=== PATIENT | male | born 1930 | race Caucasian/White ===

== ENCOUNTER 2019-02-12 10:02 | Observation (INO) | payer OTHER ==
[2019-02-12 10:19] LABS: PLATELET COUNT 262 10^3/uL (150-400)
[2019-02-12] MEDS ORDERED: ASPIRIN 81 MG CHEWABLE TAB PO ONE (10:30)
[2019-02-12] MEDS ORDERED: NS 1,000 ML IV ONE (10:30)
--- NOTE | 2019-02-12 10:30 | EDPHY ---
H & P Time Seen by Provider: 02/12/19 10:03 HPI/ROS: Chief complaint. Stroke activation HPI. 88-year-old male presents to the emergency department with a stroke activation. Had he got up early this morning he was around the house. Hit he had some right knee pain and felt generally weak and slumped to the carpet. No injury. There was some concern about left-sided weakness and left facial droop. The patient tells me he did not have any weakness to the left side or right side. He does not have a headache. He has no visual symptoms. He has no chest pain or shortness of breath. No abdominal pain. He feels normal. No prior CVA ROS 10 systems were reviewed and negative with the exception of the elements mentioned in the history of present illness Past Medical/Surgical History: Coronary artery disease with stents, prostate cancer, hypothyroid Social History: , nonsmoker, no alcohol. Lives at home with Physical Exam: General Appearance: Alert well-developed male mild distress vital signs are stable Eyes: Pupils equal and round no pallor or injection. ENT, Mouth: Mucous membranes are moist. Respiratory: There are no retractions, lungs are clear to auscultation. Cardiovascular: Regular rate and rhythm. Gastrointestinal: Abdomen is soft and nontender, no masses, bowel sounds normal. Neurological: Awake and alert, sensory and motor exams grossly normal. Speech is normal. Some slight left mouth droop. Sensation is normal to face arms and legs. Ohtzdj-[id number] is normal bilaterally. No pronator drift. Rrsg-da-[id number] is intact bilaterally Skin: Warm and dry, no rashes. Musculoskeletal: Neck is supple nontender. Extremities symmetrical, full range of motion. Psychiatric: Patient is oriented X 3, there is no agitation. Constitutional: Initial Vital Signs Temperature (C) 36.9 C 02/12/19 10:14 Heart Rate 74 02/12/19 10:14 Respiratory Rate 18 02/12/19 10:14 Blood Pressure 172/95 H 02/12/19 10:14 O2 Sat (%) 97 02/12/19 10:14 O2 Delivery Mode Room Air Allergies/Adverse Reactions: fentanyl Allergy (Verified 02/12/19 10:23) Home Medications: Medication Instructions Recorded ARMOUR THYROID 02/12/19 Protonix 02/12/19 ZOLPIDEM TARTRATE 02/12/19 Medical Decision Making - Diagnostics EKG Interpretation: EKG interpreted by me shows normal sinus rhythm normal interval. Left axis deviation. QRS is normal there is no significant ST elevation or depression. No arrhythmia. The rate is 62 Imaging Results: Imaging Impressions Chest X-Ray 02/12/19 10:05 Impression: Clear lungs. Negative portable chest. Head CT 02/12/19 10:05 Impression: 1. Negative. No acute intracranial hemorrhage or evidence of acute cortical ischemia. 2. Moderate cerebral and cerebellar atrophy. Findings discussed with emergency department physician, Antione Tucker MD on February 12, 2019 at 10:[address] reviewed by me and discussed with Dr. Hankins is normal. No evidence for bleeding Perfusion studies of head and neck showed no occlusion. Procedures: IV normal saline, monitor ED Course/Re-evaluation: I consulted with [facility] Dr. Jason Mckeon who examines the patient by robot. He gives the patient a 1 on the stroke scale and recommends no tPA at this time. He recommends perfusion studies and giving the patient an aspirin. Re-evaluation Doss 30 a.m.. Patient is stable. Patient and I discussed imaging and lab results. We discussed treatment plan including recommendation for admission. He expresses understanding and agreement I consulted and discussed the case with , hospitalist, who agrees to the admission Differential Diagnosis: Generalized weakness and fall verses CVA, TIA. Patient's only neurologic finding is some left facial droop. No evidence for intracranial hemorrhage or large vessel occlusion - Data Points Laboratory Results: Laboratory Results 02/12/19 10:05 02/12/19 10:05 02/12/19 02/12/19 02/12/19 11:31 10:50 10:09 WBC RBC Hgb POC Hgb Hct POC Hct MCV MCH MCHC RDW Plt Count MPV Neut % (Auto) Lymph % (Auto) Rogers % (Auto) Eos % (Auto) Baso % (Auto) Nucleat RBC Rel Count Absolute Neuts (auto) Absolute Lymphs (auto) Absolute Monos (auto) Absolute Eos (auto) Absolute Basos (auto) Absolute Nucleated RBC Immature Gran % Immature Gran # PT Pending REJ INR Pending REJ APTT Pending REJ POC Sodium Sodium POC Potassium Potassium POC Chloride Chloride Carbon Dioxide POC Total CO2 Anion Gap POC BUN BUN Creatinine POC Creatinine Estimated GFR Glucose POC Glucose Calcium POC Troponin I 0.01 ng/mL ng/mL (0.00-0.08) Specimen Hemolysis 02/12/19 02/12/19 02/12/19 10:07 10:05 10:05 WBC RBC Hgb POC Hgb 15.0 gm/dL gm/dL (13.7-17.5) Hct POC Hct 44 % % (40-51) MCV MCH MCHC RDW Plt Count MPV Neut % (Auto) Lymph % (Auto) Rogers % (Auto) Eos % (Auto) Baso % (Auto) Nucleat RBC Rel Count Absolute Neuts (auto) Absolute Lymphs (auto) Absolute Monos (auto) Absolute Eos (auto) Absolute Basos (auto) Absolute Nucleated RBC Immature Gran % Immature Gran # PT REJ INR REJ APTT REJ POC Sodium 142 mEq/L mEq/L (135-145) Sodium 139 mEq/L mEq/L (135-145) POC Potassium 3.9 mEq/L mEq/L (3.3-5.0) Potassium 4.4 mEq/L mEq/L (3.5-5.2) POC Chloride 106 mEq/L mEq/L (97-110) Chloride 107 mEq/L mEq/L (97-110) Carbon Dioxide 20 mEq/l L mEq/l (22-31) POC Total CO2 23 mEq/L mEq/L (22-31) Anion Gap 12 mEq/L mEq/L (6-14) POC BUN 15 mg/dL mg/dL (7-23) BUN 16 mg/dL mg/dL (7-23) Creatinine 1.0 mg/dL mg/dL (0.7-1.3) POC Creatinine 1.1 mg/dL mg/dL (0.7-1.3) Estimated GFR > 60 Glucose 92 mg/dL mg/dL (70-100) POC Glucose 92 mg/dL mg/dL (70-100) Calcium 9.4 mg/dL mg/dL (8.5-10.4) POC Troponin I Specimen Hemolysis 229 02/12/19 10:05 WBC 6.40 10^3/uL 10^3/uL (3.80-9.50) RBC 4.89 10^6/uL 10^6/uL (4.40-6.38) Hgb 14.8 g/dL g/dL (13.7-17.5) POC Hgb Hct 44.8 % % (40.0-51.0) POC Hct MCV 91.6 fL fL (81.5-99.8) MCH 30.3 pg pg (27.9-34.1) MCHC 33.0 g/dL g/dL (32.4-36.7) RDW 13.7 % % (11.5-15.2) Plt Count 262 10^3/uL 10^3/uL (150-400) MPV 10.3 fL fL (8.7-11.7) Neut % (Auto) 55.5 % % (39.3-74.2) Lymph % (Auto) 23.4 % % (15.0-45.0) Rogers % (Auto) 13.3 % H % (4.5-13.0) Eos % (Auto) 6.7 % % (0.6-7.6) Baso % (Auto) 0.6 % % (0.3-1.7) Nucleat RBC Rel Count 0.0 % % (0.0-0.2) Absolute Neuts (auto) 3.55 10^3/uL 10^3/uL (1.70-6.50) Absolute Lymphs (auto) 1.50 10^3/uL 10^3/uL (1.00-3.00) Absolute Monos (auto) 0.85 10^3/uL H 10^3/uL (0.30-0.80) Absolute Eos (auto) 0.43 10^3/uL H 10^3/uL (0.03-0.40) Absolute Basos (auto) 0.04 10^3/uL 10^3/uL (0.02-0.10) Absolute Nucleated RBC 0.00 10^3/uL 10^3/uL (0-0.01) Immature Gran % 0.5 % % (0.0-1.1) Immature Gran # 0.03 10^3/uL 10^3/uL (0.00-0.10) PT INR APTT POC Sodium Sodium POC Potassium Potassium POC Chloride Chloride Carbon Dioxide POC Total CO2 Anion Gap POC BUN BUN Creatinine POC Creatinine Estimated GFR Glucose POC Glucose Calcium POC Troponin I Specimen Hemolysis Point of Care Test Results: Chemistry 02/12/19 02/12/19 10:09 10:07 POC Sodium 142 mEq/L mEq/L (135-145) POC Potassium 3.9 mEq/L mEq/L (3.3-5.0) POC Chloride 106 mEq/L mEq/L (97-110) POC Total CO2 23 mEq/L mEq/L (22-31) POC BUN 15 mg/dL mg/dL (7-23) POC Creatinine 1.1 mg/dL mg/dL (0.7-1.3) POC Glucose 92 mg/dL mg/dL (70-100) POC Troponin I 0.01 ng/mL ng/mL (0.00-0.08) ISTAT H&H 02/12/19 10:07 POC Hgb 15.0 gm/dL gm/dL (13.7-17.5) POC Hct 44 % % (40-51) Departure - Departure Disposition: [facility] Inpatient Acute Clinical Impression: Transient cerebral ischemia Qualifiers: Transient cerebral ischemia type: unspecified Qualified Code(s): G45.9 - Transient cerebral ischemic attack, unspecified Condition: Fair Referrals: Patient,NotPresent [Primary Care Provider] - As per Instructions
[2019-02-12] MEDS ORDERED: IOPAMIDOL (ISOVUE 370) 100 ML BTL IV ONE (10:46)
--- NOTE | 2019-02-12 11:34 | CPEKG ---
Test Reason : OPEN Blood Pressure : / mmHG Vent. Rate : 062 BPM Atrial Rate : 062 BPM P-R Int : 161 ms QRS Dur : 105 ms QT Int : 419 ms P-R-T Axes : 049 015 059 degrees QTc Int : 426 ms Sinus rhythm Low voltage, precordial leads Consider inferior infarct Probable anteroseptal infarct, old Confirmed by Antione Tucker ([id number]) on 02/12/2019 11:33:45 AM Referred By: Antione Tucker Confirmed By:Antione Tucker
[2019-02-12 11:53] LABS: INR 1.04 (0.83-1.16); PROTIME(PATIENT) 13.2 SEC (12.0-15.0)
--- NOTE | 2019-02-12 13:25 | ASMTCMCOM ---
CM Note CM Note Notes: Reviewed chart. Pt presented to the Emergency Department via EMS as a stroke alert, r/o CVA secondary to left sided facial droop and weakness. History includes coronary artery disease with prior stenting, prostate cancer, and hypothyroid. Pt is and lives with his . CM to beside at time of arrival; pt unaccompanied by family. Offered to contact pt's or son. Per pt, family should be en route the hospital. Pt's called EMS. Per MD notes, pt to likely be admitted for concerns of a TIA for further observation. Discharge needs remain unclear at this time. CM will continue to follow. Discharge Plan: To be determined Date Signed: 02/12/2019 01:25 PM Electronically Signed By:Cintia Amos RN
[2019-02-12] MEDS ORDERED: ONDANSETRON 4 MG/2 ML VIAL IVP PRN (15:26)
[2019-02-12] MEDS ORDERED: ACETAMINOPHEN 325 MG TAB PO PRN (15:26)
[2019-02-12] MEDS ORDERED: oxyCODONE IR 5 MG TAB PO PRN (15:26)
[2019-02-12] MEDS ORDERED: PROMETHAZINE HCL 25 MG/ML INJ IVP PRN (15:26)
[2019-02-12] MEDS ORDERED: ONDANSETRON DISINTEGRATING 4 MG TAB PO PRN (15:26)
[2019-02-12] MEDS ORDERED: HYDROCODONE/APAP 5/325 TAB PO PRN (15:26)
[2019-02-12] MEDS ORDERED: PANTOPRAZOLE SODIUM 40 MG TAB PO PRN (15:29)
[2019-02-12] MEDS ORDERED: ZOLPIDEM TARTRATE 5 MG TAB PO PRN (15:29)
--- NOTE | 2019-02-12 15:30 | PDGENHP ---
History and Physical - Chief Complaint right leg weakness - History of Present Illness 88 yo M with PMH of CAD s/p stents x 2 as well as prostate cancer presenting with brief episode of right leg weakness and inability to walk. He notes that milagros woke up feeling in his usual state of health, was walking around his house as usual when he developed sudden weakness in his right leg. He notes he has a bad right knee and initially thought it was due to that, but he essentially slumped to the ground and then was unable to get himself up again due to the severe weakness in his leg. His tried to help him up and even with her help could not stand. He did not lose consciousness and did not hurt himself on his way to the ground. He has never had similar issues in the past, he did not have any preceding issues including chest pain or palpitations.l He notes he was quite sick nearly 2 months ago with a UTI and also had sepsis and bacteremia at that time requiring a 5 day hospital stay but has felt back to normal since then. History Information - Allergies/Home Medication List Allergies/Adverse Reactions: fentanyl Allergy (Verified 02/12/19 10:23) Home Medications: [place] Thyroid 120 mg PO DAILY 02/12/19 [Last Taken 02/11/19] Herbals/Supplements -Info Only 1 ea PO DAILY 02/12/19 [Last Taken 02/11/19] Pantoprazole Sodium [Protonix 40mg (*)] 40 mg PO BID PRN 02/12/19 [Last Taken ] Zolpidem Tartrate [Ambien 5MG (*)] 5 mg PO HS PRN 02/12/19 [Last Taken 02/11/19] I have personally reviewed and updated: family history, medical history, social history, surgical history - Past Medical History coronary artery disease (s/p stents x 2), cancer (prostate), GERD Additional medical history: hypothyroid - Surgical History Reports: angioplasty, cancer surgery - Family History Positive for: non-pertinent - Social History Smoking Status: Never smoked Alcohol Use: Rarely Drug Use: None Additional social history: lives with his Review of Systems Review of Systems: ROS: 10pt was reviewed & negative except for what was stated in HPI & below Physical Exam Physical Exam: Temp Pulse Resp BP Pulse Ox 36.4 C 55 L 18 155/79 H 95 02/12/19 13:50 02/12/19 13:50 02/12/19 13:50 02/12/19 13:50 02/12/19 13:50 Constitutional: no apparent distress, appears nourished Eyes: PERRL, anicteric sclera Ears, Nose, Mouth, Throat: moist mucous membranes, hearing normal Cardiovascular: regular rate and rhythym, no murmur, rub, or gallop, No edema Respiratory: no respiratory distress, no rales or rhonchi Gastrointestinal: normoactive bowel sounds, soft, non-tender abdomen Genitourinary: no bladder tenderness Skin: warm, normal color Musculoskeletal: full muscle strength Neurologic: AAOx3, CN II-XII Intact, No weakness, No numbness Psychiatric: interacting appropriately, not anxious, not encephalopathic Lab Data & Imaging Review 02/12/19 10:05 02/12/19 10:05 WBC 6.40 10^3/uL (3.80-9.50) 02/12/19 10:05 RBC 4.89 10^6/uL (4.40-6.38) 02/12/19 10:05 Hgb 14.8 g/dL (13.7-17.5) 02/12/19 10:05 POC Hgb 15.0 gm/dL (13.7-17.5) 02/12/19 10:07 Hct 44.8 % (40.0-51.0) 02/12/19 10:05 POC Hct 44 % (40-51) 02/12/19 10:07 MCV 91.6 fL (81.5-99.8) 02/12/19 10:05 MCH 30.3 pg (27.9-34.1) 02/12/19 10:05 MCHC 33.0 g/dL (32.4-36.7) 02/12/19 10:05 RDW 13.7 % (11.5-15.2) 02/12/19 10:05 Plt Count 262 10^3/uL (150-400) 02/12/19 10:05 MPV 10.3 fL (8.7-11.7) 02/12/19 10:05 Neut % (Auto) 55.5 % (39.3-74.2) 02/12/19 10:05 Lymph % (Auto) 23.4 % (15.0-45.0) 02/12/19 10:05 [place] % (Auto) 13.3 % (4.5-13.0) H 02/12/19 10:05 Eos % (Auto) 6.7 % (0.6-7.6) 02/12/19 10:05 Baso % (Auto) 0.6 % (0.3-1.7) 02/12/19 10:05 Nucleat RBC Rel Count 0.0 % (0.0-0.2) 02/12/19 10:05 Absolute Neuts (auto) 3.55 10^3/uL (1.70-6.50) 02/12/19 10:05 Absolute Lymphs (auto) 1.50 10^3/uL (1.00-3.00) 02/12/19 10:05 Absolute Monos (auto) 0.85 10^3/uL (0.30-0.80) H 02/12/19 10:05 Absolute Eos (auto) 0.43 10^3/uL (0.03-0.40) H 02/12/19 10:05 Absolute Basos (auto) 0.04 10^3/uL (0.02-0.10) 02/12/19 10:05 Absolute Nucleated RBC 0.00 10^3/uL (0-0.01) 02/12/19 10:05 Immature Gran % 0.5 % (0.0-1.1) 02/12/19 10:05 Immature Gran # 0.03 10^3/uL (0.00-0.10) 02/12/19 10:05 PT 13.2 SEC (12.0-15.0) 02/12/19 11:31 INR 1.04 (0.83-1.16) 02/12/19 11:31 APTT 25.2 SEC (23.0-38.0) 02/12/19 11:31 POC Sodium 142 mEq/L (135-145) 02/12/19 10:07 Sodium 139 mEq/L (135-145) 02/12/19 10:05 POC Potassium 3.9 mEq/L (3.3-5.0) 02/12/19 10:07 Potassium 4.4 mEq/L (3.5-5.2) 02/12/19 10:05 POC Chloride 106 mEq/L (97-110) 02/12/19 10:07 Chloride 107 mEq/L (97-110) 02/12/19 10:05 Carbon Dioxide 20 mEq/l (22-31) L 02/12/19 10:05 POC Total CO2 23 mEq/L (22-31) 02/12/19 10:07 Anion Gap 12 mEq/L (6-14) 02/12/19 10:05 POC BUN 15 mg/dL (7-23) 02/12/19 10:07 BUN 16 mg/dL (7-23) 02/12/19 10:05 Creatinine 1.0 mg/dL (0.7-1.3) 02/12/19 10:05 POC Creatinine 1.1 mg/dL (0.7-1.3) 02/12/19 10:07 Estimated GFR > 60 02/12/19 10:05 Glucose 92 mg/dL (70-100) 02/12/19 10:05 POC Glucose 92 mg/dL (70-100) 02/12/19 10:07 Calcium 9.4 mg/dL (8.5-10.4) 02/12/19 10:05 POC Troponin I 0.01 ng/mL (0.00-0.08) 02/12/19 10:09 Specimen Hemolysis 229 02/12/19 10:05 Visualized and Interpreted Chest x-ray results: Yes Chest X-Ray results: no infiltrate Visualized and Interpreted imaging results: Yes Interpretation: head CT: negative. head/neck CTA: no significant flow limiting stenosis, minimal carotid bulb plaque Visualized and Interpreted EKG results: Yes EKG Interpretation: Positive for: normal sinsus rhythm Assessment & Plan Assessment: Transient cerebral ischemia (Acute) 88 yo M with PMH of CAD presenting with transient RLE weakness # RLE weakness: per patient he had brief right leg weakness to where he was unable to walk, he states that EMS thought it was left sided and with a left facial droop, in ER mild left facial droop was thought to be persistent still, currently appears neurologically intact. Imaging including head ct/head/neck CTA negative. Will monitor overnight on tele, serial neuro checks, neurology consult in am, lipid panel in am, given asa and will continue, echo in am # CAD: followed by Dr. Francisco, patient states he had stents 2 years ago, not on asa, statin or other cardiac meds per his report, given asa and lipid panel pending as above, will look for further records from cardiology, echo in am # hypothyroid: continue armour thyroid # GERD: continue PPI # prostate cancer: followed by Dr. Tomlinson, PSA has been followed and patient notes it stays low # observation status Patient new to my care. Old records reviewed and summarized as above. Care plan reviewed with ER doctor.
[2019-02-12] MEDS: FLUTICASONE NASAL 120 SPRAYS/16 GM MDI EACHNARE SCH (23:20)
[2019-02-13] MEDS ORDERED: ASPIRIN 81 MG CHEWABLE TAB PO SCH (09:00)
[2019-02-13] MEDS: FLUTICASONE NASAL 120 SPRAYS/16 GM MDI EACHNARE SCH (09:46)
[2019-02-13] MEDS ORDERED: THYROID 60 MG TAB PO SCH (10:00)
[2019-02-13] MEDS ORDERED: ATORVASTATIN CALCIUM 40 MG TAB PO SCH (10:15)
--- NOTE | 2019-02-13 13:35 | ASMTCMCOM ---
CM Note CM Note Notes: At this time PT/OT has cleared pt to go home independently. Pt's is supportive. CM spoke with MD, pt is likely to be discharged independently. CM available if needs arise. Date Signed: 02/13/2019 01:35 PM Electronically Signed By:SRINI Durham
--- NOTE | 2019-02-13 15:22 | PDDCSUM ---
Discharge Summary Discharge Summary: Dates of service 02/12-02/13/19 Consultations: neurology Procedures: brain MRI, echo, head/neck CTA Hospital course by problem: 88 yo M with PMH of CAD presenting with transient LLE weakness found to be due to CVA # CVA: noted on MRI and consistent with his findings of LLE weakness, reviewed with neurology, recommend asa and f/u with cardiology for cardiac monitoring for at least 30 days, statin therapy. Would do DAPT with plavix for 21 days however patient with hx of massive GI bleed on plavix so will defer that. # LLE weakness: 2/2 above, patient initially reporting that it was his right leg however EMS noted left sided as did ER. Patient now able to confirm that it likely was left sided. Largely resolved and due to above. # CAD: followed by Dr. Francisco, patient states he had stents 2 years ago, started on asa and statin as above, f/u with cardiology for cardiac monitoring as well # hypothyroid: continue armour thyroid # GERD: continue PPI # prostate cancer: followed by Dr. Tomlinson, PSA has been followed and patient notes it stays low dc home f/u with PCP, cardiology, neurology
[2019-02-13 15:35] VITALS: BP 135/79
--- NOTE | 2019-02-13 15:36 | ASDISCHSUM ---
Discharge Information Plan Status:Home with No Needs Medically Cleared to Leave: Discharge Date: D/C Disposition:Home, Routine, Self-Care ADT D/C Disposition:Home, Routine, Self-Care Projected Discharge Date:02/13/2019 12:00 AM Transportation at D/C:Family Discharge Delay Reason: Follow-Up Date:02/13/2019 12:00 AM Discharge Slot: Final Diagnosis: Placement Information Patient Contact Information Contact Name:SONAM Relationship: Address:[address] City:[place] Alternate Phone: [facility]/Zip Code:[place] [address] Email: Financial Information Financial Class:Medicare Primary Plan Desc:MEDICARE INPATIENT Primary Plan Number:[id number] Secondary Plan Desc:DRISS Secondary Plan Number:[id number] Assessment Information LACE LACE Length of stay for Answers: 1 day current admission Acuity / Level of Answers: No Care: Did the patient have an inpatient admission? Comorbidities - select Answers: Any tumor (including all that apply lymphoma or leukemia) Cerebrovascular disease (CVA, TIA, aneurysms, vasc ular dementia) Coronary Artery Disease Other Notes: CAD w/ stents, prostate cancer, hypothyroid # of Emergency department Answers: 1-2 visits in the last 6 months Score: 8 Date Signed: 02/13/2019 03:34 PM Electronically Signed By:SRINI Durham [facility] Progress Note CM Note CM Note Notes: Reviewed chart. Pt presented to the Emergency Department via EMS as a stroke alert, r/o CVA secondary to left sided facial droop and weakness. History includes coronary artery disease with prior stenting, prostate cancer, and hypothyroid. Pt is and lives with his . CM to beside at time of arrival; pt unaccompanied by family. Offered to contact pt's or son. Per pt, family should be en route the hospital. Pt's called EMS. Per MD notes, pt to likely be admitted for concerns of a TIA for further observation. Discharge needs remain unclear at this time. CM will continue to follow. Discharge Plan: To be determined Date Signed: 02/12/2019 01:25 PM Electronically Signed By:Cintia Amos RN [facility] CM Progress Note CM Note CM Note Notes: At this time PT/OT has cleared pt to go home independently. Pt's is supportive. CM spoke with MD, pt is likely to be discharged independently. CM available if needs arise. Date Signed: 02/13/2019 01:35 PM Electronically Signed By:SRINI Durham Case Management Discharge Plan Note Case Management Discharge Discharge Order Complete? Answers: Yes Patient to Obtain Answers: via Family Medications Transportation Arranged Answers: Family/Friends Discharge Comments Notes: Discharge independently PT/OT cleared to go home, no CM needs identified. Family to transport. Date Signed: 02/13/2019 03:33 PM Electronically Signed By:SRINI Durham Intervention Information Intervention Type:*Incorrect Registration Date of Service:02/12/2019 05:58 PM Patient Type:Inpatient Staff Member:LORELEI Amador Courtney Hours: Discipline: Severity: Comment:
--- NOTE | 2019-02-13 16:16 | ECHO ---
[email or web address] [address] [address] Main: [phone] Echocardiography Examination Transthoracic Name: MARIUM GUEVARA MR#: [id number] Study Date: 02/13/2019 Study Time: 02:44 PM Date of : 1930 Age: 88 year(s) Height: 167.6 cm (66 in.) Weight: 73.03 kg (161 lb.) BSA: 1.82 m2 Gender: Male Examination: Echo Contrast: Image Quality: Adequate Rhythm: Heart Rate: 69 bpm BP: 132 mmHg/92 mmHg Indication: Weakness, Hx of stents Procedure Staff Referring Physician: Sign Maintenance: Maged De La Torre RDCS Reading Physician: Prieto Esparza MD Requesting Provider: Indication: Weakness, Hx of stents Measurements Chambers AV/MV Label Value Normal Value Label Value Normal Value EF lower range (%) 50 % AV PGmax 4 mmHg EF upper range (%) 55 % AV PGmean 2 mmHg EPSS, MM 0.8 cm (0.2cm - 0.7cm) AV Vmax 0.94 m/s IVSd, 2D 0.8 cm (0.6cm - 1.1cm) SARAY (continuity eq. 2.9 cm2 LVDd, 2D 4.2 cm (4.2cm - 5.9cm) Vmax) LVDs, 2D 3.1 cm (2.1cm - 4cm) SARAY D (continuity eq. 3.5 cm2 LVEF, 2D 52 % (54% - 74%) VTI) LVEF, BP 53 % (55% - 70%) MV A Vmax 0.8 m/s LVEF, MOD2 52 % (55% - 70%) MV E Vmax 0.42 m/s LVEF, MOD4 50 % (55% - 70%) MV E/A 0.52 LVOT PGmax 2 mmHg TV/PV LVOT PGmean 2 mmHg Label Value Normal Value LVOT Vmax 0.78 m/s (0.7m/s - 1.1m/s) HI End ventura Shawn 0.88 cm/s LVOT Vmean 0.59 m/s PV PGmax 2 mmHg LVOTd 2.1 cm (1.9cm - 2.1cm) PV Vmax, Caliper 0.79 m/s (0.6m/s - 0.9m/s) LVPWd, 2D 1 cm (0.6cm - 1cm) LA Area, A2C 10 cm2 (0cm2 - 20cm2) LA Volume, A2C 21 ml (18ml - 58ml) LA Volume, A4C 20 ml (16ml - 34ml) LA Volume, BP 21 ml (18ml - 58ml) Patient: MARIUM GUEVARA Study Date: 02/13/2019 Page 1 of 3 02:44 PM LAD Index, 2D 1.81 cm/m2 LADs, 2D 3.3 cm (3cm - 4cm) LAESV index, MOD4 11 ml/m2 Additional Vessels Label Value Normal Value AoAsc 3 cm AoRoot, MM 2.5 cm (2.2cm - 3.7cm) Conclusions Left Ventricle: Left ventricle is normal in size. EF range is estimated at 50 % - 55 %. No thrombus is identified in the left ventricle. LV apex is akinetic Right Ventricle: Right ventricular systolic function is normal. Mitral Valve: No significant mitral regurgitation. Aortic Valve: There is no aortic stenosis. Tricuspid Valve: Tricuspid valve leaflets are normal in appearance and function. Overall Conclusions: There is no previous echocardiogram for comparison. Findings Left Ventricle: Left ventricle is normal in size. Mildly reduced systolic left ventricular function. The ejection fraction, measured by Simpsons method, is 53 %. EF range is estimated at 50 % - 55 %. Left ventricle wall thickness is normal. Grade I Diastolic Dysfunction. No thrombus is identified in the left ventricle. LV apex is akinetic Right Ventricle: Normal size right ventricle. Right ventricular systolic function is normal. Left Atrium: The left atrium is normal in size. Left Atrium Measurements LAESV index, MOD4 is 11.0 ml/m2. Right Atrium: The right atrium is normal in size. Mitral Valve: Mitral valve appears structurally normal. No significant mitral regurgitation. No mitral valve stenosis. Aortic Valve: Aortic leaflets are structurally normal. No aortic valve regurgitation. There is no aortic stenosis. Tricuspid Valve: Tricuspid valve leaflets are normal in appearance and function. No tricuspid regurgitation. Pulmonic Valve: Pulmonic leaflets are structurally normal. Trivial pulmonic valve regurgitation is present. Patient: MARIUM GUEVARA Study Date: 02/13/2019 Page 2 of 3 02:44 PM Aorta: The aorta is normal. The aortic root size in M-mode measures 2.5 cm. The ascending aorta measures 3.0 cm. Aorta Measurements AoRoot, MM is 2.5 cm. Pericardium: No pericardial effusion. Exam Details Procedure Ordered: Echo Procedure Status: Routine study Image Quality: Adequate Facility Location: Cardiac Echo 1 (No Signature Object) Wall Motion Scores Patient: MARIUM GUEVARA Study Date: 02/13/2019 Page 3 of 3 02:44 PM [id number]
--- NOTE | 2019-02-13 18:06 | GCON ---
[f rep st] CONSULTATION NEUROLOGY CONSULT REFERRING PHYSICIAN: Satya Self MD CHIEF COMPLAINT: Transient left leg weakness. HISTORY OF PRESENT ILLNESS: The patient is a retired dentist, originally from [place], [place]. [place] now. The patient has a coronary artery history, status post stenting, and a history of prostate cancer. However, he states he is not on any cardiovascular medications including he is not on aspirin. The patient was going through his usual routine yesterday midmorning, going up and down the stairs and using his computer, interacting with his , when he had sudden/hyperacute onset of left leg weakness to the point he crumpled to the ground, and was unable to get up. His also noticed some drooling out of his left mouth and slurred speech for a couple minutes. The left leg completely resolved in 15 minutes. He was brought to the ED and had a full acute stroke evaluation by my colleagues in the ER. By the time he got to the ER and was seen by telemedicine , [facility], his NIH score was 1 and tPA was not indicated based on the entire clinical picture. He was started on aspirin and admitted. CTA of the head and neck did not show any acute large vessel occlusion or significant atherosclerotic plaques that cause flow-limiting stenosis. He was less than 20 % bilaterally in the carotids. He has no history of AFib or palpitations that he is aware of. Echocardiogram was done this morning and is pending. MRI brain was also done and pending, in terms of the interpretation. 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 Including involvement of the left leg homunculus regions. REVIEW OF SYSTEMS: Ten-point review of system was done and only pertinent to the HPI. For past medical history, social history, family history, home medications, allergies, see Dr. Self's note. PHYSICAL EXAM: VITAL SIGNS: His blood pressure is 133/92, afebrile at 36.6, respiratory rate 14 to 16 breaths per minute. GENERALLY: Very pleasant, no distress. NEUROLOGICAL: On higher mental function, he has no aphasia. He is lucid, awake, and alert. Cranial nerve exam, he has no facial weakness or numbness now on exam. Extraocular movements are full. On motor exam, he may have had just trace weakness in the left leg with extension at the hip. Otherwise, there was no definite abnormality in power testing in his extremities. Light touch was normal throughout all 4 extremities. Coordination is normal in upper and lower extremities. IMPRESSION/PLAN: 1. Stroke. The MRI brain shows multifocal areas of diffusion-weighted abnormalities in the right hemisphere in the MCA distribution. Clinically, he had spontaneous resolution of his profound left leg weakness with some trace residual weakness now. This would suggest a larger thrombus affecting the left leg had dissolved on its own prior to reaching the emergency department, fortunately. His angiography of the head and neck did not show any significant findings to explain this event. I suspect he had a proximal embolus either from the heart or aortic arch that went through the right carotid system and broke up as it went caudally into the cerebral vasculature. He was counseled at length. Going forward, I recommend he be on Plavix 75 mg daily, plus aspirin 81 mg daily for 21 days, then Plavix can be discontinued. We discussed potential risks, benefits and alternatives of anti-platelet therapy including dual antiplatelet therapy in terms of risk of bruising, bleeding. He needs to be on statin therapy for his elevated cholesterol including LDL of 162. This can be monitored as an outpatient as his lipids improve. Finally, pending review of his echocardiogram, he will need outpatient ECG monitoring with his shore working supervisor, Dr. Francisco. I recommend first, a 30-day event monitor and if this is negative for paroxysmal atrial fibrillation, then he could be considered for an implantable cardiac care unit nurse. The interpretations of his MRI brain and echocardiogram are pending at the time of dictation. If there are any significant abnormalities outside of the obvious stroke on MRI brain or any abnormalities on echocardiogram, please contact the neurology service for any further recommendations as needed. Otherwise, the patient is requesting discharge today. I will defer to Hospital Medicine. We appreciate the consultation. Please do not hesitate to call if there are any questions or changes in neurologic status with this very pleasant patient. Seventy total minutes floor time; over 50% in direct counseling and coordination of care. ADDENDUM: The patient and his family recall that he had significant GI bleeding on Plavix previously. This event occurred while he was on NO anti-platelet therapy. Therefore, he will be on aspirin 81 mg alone to avoid significant adverse effects of GI bleeding. /[id number]/MODL MTDD
== END 2019-02-13 17:15 | disposition home or self-care (01) ==
LOC: EDUNIT# → INTOOBSV 11:41 → F3N 13:31
PROVIDERS: ADMIT Internal Medicine; ATTEND Internal Medicine
DX: I63.511 Cerebral infarction due to unspecified occlusion or stenosis of right middle cerebral artery (principal); R29.701 NIHSS score 1; I25.10 Atherosclerotic heart disease of native coronary artery without angina pectoris; Z95.5 Presence of coronary angioplasty implant and graft; E03.9 Hypothyroidism, unspecified; K21.9 Gastro-esophageal reflux disease without esophagitis; Z85.46 Personal history of malignant neoplasm of prostate
CPT/HCPCS: 70450; 70496; 70498; 70551; 71045; 92523; 93005; 93306; 97116; 97161; 97165; G0378; Q9967; 82435-PO; 82565-PO; 82947-PO; 84132-PO; 84295-PO; 84484-ER; 84520-PO; 85014-ER